=== PATIENT | female | born 1950 | race Caucasian/White ===

== ENCOUNTER → 2016-07-17 | Outpatient (CLI) | payer OTHER | LOC: BHFA 11:00 | PROVIDERS: ATTEND Internal Medicine Cardiovascular Disease | DX: R00.2 Palpitations (principal); R42 Dizziness and giddiness; R06.02 Shortness of breath ==

== ENCOUNTER → 2016-08-03 | Outpatient (CLI) | payer OTHER, MEDICAID | LOC: FIMAGING 10:01 | PROVIDERS: ATTEND Internal Medicine | DX: R07.9 Chest pain, unspecified (principal); R06.02 Shortness of breath ==

== ENCOUNTER → 2016-08-11 | Outpatient (CLI) | payer OTHER, MEDICAID | LOC: BHFA 10:00 | PROVIDERS: ATTEND Internal Medicine | DX: R07.9 Chest pain, unspecified (principal); R06.02 Shortness of breath ==

== ENCOUNTER → 2016-08-21 | Outpatient (CLI) | payer OTHER, MEDICAID | LOC: FIMAGING 15:01 | DX: Z12.31 Encounter for screening mammogram for malignant neoplasm of breast (principal) | CPT/HCPCS: G0202 ==

== ENCOUNTER 2017-01-22 08:20 | Observation (INO) | payer OTHER, MEDICAID ==
[2017-01-22] MEDS ORDERED: HYDROmorphONE/DILAUDID 1 MG/ML INJ IVP ONE ×2 (08:48→09:08)
--- NOTE | 2017-01-22 09:11 | EDPHY ---
H & P Stated Complaint: rt soulder pain Source: Patient Exam Limitations: No limitations - Personal History Current Tetanus/Diphtheria Vaccine: No Current Tetanus Diphtheria and Acellular Pertussis (TDAP): No - Medical/Surgical History Hx Asthma: Yes Hx Chronic Respiratory Disease: No Hx Diabetes: No Hx Cardiac Disease: No Hx Renal Disease: No Hx Cirrhosis: No Hx Alcoholism: No Hx HIV/AIDS: No Hx Splenectomy or Spleen Trauma: No Other PMH: anxiety - Social History Smoking Status: Never smoked Time Seen by Provider: 01/22/17 08:58 HPI/ROS: CHIEF COMPLAINT: right shoulder pain, right rib pain HISTORY OF PRESENT ILLNESS: 66-year-old female presents emergency department after slipping while going down stairs today. She missed a step and fell onto her right arm. Patient complains of right-sided chest pain and shoulder pain. Pain is worse with a deep breath and movement. She denies head strike, no loss of consciousness, remembers the entire accident, no neck pain. Patient denies numbness or tingling in her arm. REVIEW OF SYSTEMS: A comprehensive 10 point review of systems is otherwise negative aside from elements mentioned in the history of present illness. (Nica Rao) - Physical Exam Exam: General Appearance: Alert, grimacing, talking appropriately. Head: Atraumatic without scalp tenderness or obvious injury Eyes: Pupils equal, round, reactive to light, EOMI, no trauma, no injection. Ears: Clear bilaterally, no perforation, no hemotympanum Nose: Atraumatic, no rhinorrhea, no septal hematoma Neck: The cervical spine is non-tender. Cardiovascular: Heart is regular rate and rhythm without murmur. Good capillary refill all extremities. Chest: Anterior and right lateral chest wall tenderness to palpation, shallow respirations, lungs clear bilaterally Gastrointestinal: Soft, non-tender, non-distended. No rebound, guarding, or peritoneal signs. There is no evidence of external or internal trauma. Back:There is no thoracic or lumbar spine or paraspinal tenderness. Extremities: Right shoulder with decreased range of motion due to pain, swelling noted tenderness to AC joint and clavicle, no right elbow or wrist tenderness, 2+ radial pulses, sensation intact touch, normal deltoid sensation Neurological: Grossly intact Skin: No lacerations, diane, or abrasions. (Nica Rao) Constitutional: Initial Vital Signs Temperature (C) 36.7 C 01/22/17 08:26 Heart Rate 75 01/22/17 08:26 Respiratory Rate 18 01/22/17 08:26 Blood Pressure 134/89 H 01/22/17 08:26 O2 Sat (%) 98 01/22/17 08:26 O2 Delivery Mode Room Air Allergies/Adverse Reactions: erythromycin base Allergy (Verified 01/22/17 11:24) upest stomach Home Medications: Medication Instructions Recorded Cholecalciferol Vit D3 [Vitamin D3 100 units PO DAILY 01/22/17 (*)] Estradiol [Estrace Vaginal (*)] 1 triston VG HS 01/22/17 Herbals/Supplements -Info Only 1 ea PO DAILY 01/22/17 Ibuprofen [Motrin (*)] 800 mg PO DAILY PRN 01/22/17 LORazepam [Ativan (*)] 0.5 mg PO DAILY PRN 01/22/17 Multivitamins [Multivitamin (*)] 1 each PO DAILY 01/22/17 Zolpidem Tartrate [Ambien 5MG (*)] 5 mg PO HS PRN 01/22/17 Medical Decision Making - Diagnostics Imaging Results: Imaging Impressions Chest X-Ray 01/22/17 08:40 Impression: Possibly 3 acute right rib fractures. Humerus X-Ray 01/22/17 08:40 Impression: Distal right clavicle fracture. Displaced right posterior second rib fracture. 2. Right Humerus, 2 views History: Pain post fall Findings: No humeral fracture is identified. The shoulder and elbow joints appear normally aligned. The right second rib and distal clavicle fractures are again visualized. Impression: Negative right humerus. Results discussed with Dr. Rex Barragan. Clavicle X-Ray 01/22/17 08:55 Impression: Distal right clavicle fracture. Displaced right posterior second rib fracture. 2. Right Humerus, 2 views History: Pain post fall Findings: No humeral fracture is identified. The shoulder and elbow joints appear normally aligned. The right second rib and distal clavicle fractures are again visualized. Impression: Negative right humerus. Results discussed with Dr. Rxe Barragan. Chest CT 01/22/17 09:28 Impression: 1. Fracture distal right clavicle as well as fractures of the posterior right second rib and anterolateral right third fourth and sixth ribs. 2. Mild dilatation of the ascending aorta measuring 4 cm. This is nonspecific but can be seen with hypertension or aortic valvular disease. 3. No evidence of pulmonary parenchymal contusion or pneumothorax. Subsegmental atelectasis at the lung bases. 4. Incidental high flow hemangioma suspected in the right lobe liver as well as a small cyst. Findings discussed with Nica Rao NP at 10:43 hour, 01/22/2017. ED Course/Re-evaluation: IV established, patient is given 0.5 mg of Dilaudid for pain control. Right shoulder x-ray shows a distal clavicle fracture. Chest x-ray shows a 2nd rib fracture and possible 8th and 9th rib fracture. I-STAT ordered, CT chest with IV contrast obtained to evaluate for vascular injury. CT chest shows a 2nd, 3rd 4th and 6th rib fracture a with no pulmonary contusion , no pneumothorax or hemothorax, no vascular injury. I have spoken with trauma surgery with plan for admission and observation. Dr. Reina with ortho is aware of the patient. Pt's vital signs are stable. Pain is controlled with IV dilaudid. Room air O2 sats 93%. (Nica Rao) Differential Diagnosis: The differential diagnosis for the patient's trauma included but was not limited to intracranial injury, long bone and pelvic bone fractures, spinal injury, intra-abdominal injury, and intra-thoracic injury. (Nica Rao) Other Provider: Independent physician documentation CHIEF COMPLAINT: Right shoulder pain, deformity, chest wall pain, dyspnea HISTORY OF PRESENT ILLNESS: The patient presents to the ED with complaints of right shoulder pain, deformity and swelling noted to her distal clavicle, chest wall pain shortness of breath. The patient was at home where she reportedly earlier today. The patient did not strike her head or lose consciousness. She denies any complaints of headache or neck pain. The patient is not anticoagulated. She has moderate to severe pain with attempted movement of her right shoulder. The patient denies any acute numbness or weakness. She denies additional injury. REVIEW OF SYSTEMS: A comprehensive 10 point review of systems is otherwise negative aside from elements mentioned in the history of present illness. PHYSICAL EXAM: General Appearance: Alert, mild discomfort secondary to pain Head: Atraumatic Eyes: Pupils equal, round, reactive ENT, Mouth: No hemotympanum, no oral trauma Neck: Nontender, trachea midline Respiratory: Tenderness to palpation right distal clavicle, no subcutaneous emphysema Cardiovascular: Regular rate and rhythm Abdomen: Abdomen is soft and nontender, pelvis stable Skin: No lacerations, No abrasion Back: No midline T/L/S pain Extremities: Tenderness to palpation throughout the right proximal humerus, decreased range of motion secondary to pain Neurological: A&Ox3, normal motor function, normal sensory exam ED course: Patient was taken for chest x-rays of the right shoulder, clavicle and chest which demonstrated a displaced a distal clavicle fracture. The patient is also noted to have a least 1 rib fracture noted on her 2nd. A chest CT scan with contrast has been ordered to evaluate for any potential vascular injury. The CTA demonstrates no evidence of a vascular injury. It does demonstrate multiple rib fractures. The patient will require admission to the hospital for pain control this evening. Consultation was made with Dr. Laws from General surgery who will admit the patient. (Humberto Barragan) - Data Points Laboratory Results: 01/22/17 09:29 POC Hgb 15.0 gm/dL gm/dL (12.6-16.3) POC Hct 44 % % (38-47) POC Sodium 139 mEq/L mEq/L (134-144) POC Potassium 4.0 mEq/L mEq/L (3.3-5.0) POC Chloride 104 mEq/L mEq/L (97-110) POC BUN 14 mg/dL mg/dL (7-23) POC Creatinine 0.7 mg/dL mg/dL (0.6-1.0) POC Glucose 102 mg/dL H mg/dL (70-100) Medications Given: Diazepam (Valium Injection) 5 mg IVP Q6HRS PRN PRN Reason: Anxiety, Unable to Take PO Stop: 07/21/17 12:18 Last Admin: 01/22/17 13:07 Dose: 5 mg Discontinued Medications Hydrocodone Bitart/Acetaminophen (Crossnore 5/325) 1 tab PO EDNOW ONE Stop: 01/22/17 12:02 Last Admin: 01/22/17 12:10 Dose: 1 tab Hydromorphone HCl (Dilaudid) 0.5 mg IVP EDNOW ONE Stop: 01/22/17 08:49 Last Admin: 01/22/17 09:11 Dose: 0.5 mg Hydromorphone HCl (Dilaudid) 0.5 mg IVP EDNOW ONE Stop: 01/22/17 09:09 Last Admin: 01/22/17 09:31 Dose: 0.5 mg Ketorolac Tromethamine (Toradol) 15 mg IVP EDNOW ONE Stop: 01/22/17 12:02 Last Admin: 01/22/17 12:10 Dose: 15 mg Point of Care Test Results: 01/22/17 09:29 POC Sodium 139 POC Potassium 4.0 POC Chloride 104 POC BUN 14 POC Creatinine 0.7 POC Glucose 102 H Departure - Departure Disposition: [facility] Inpatient Acute Clinical Impression: Closed fracture of distal clavicle Qualifiers: Encounter type: initial encounter Fracture alignment: displaced Laterality: right Qualified Code(s): S42.031A - Displaced fracture of lateral end of right clavicle, initial encounter for closed fracture Ribs, multiple fractures Qualifiers: Encounter type: initial encounter Fracture type: closed Laterality: right Qualified Code(s): S22.41XA - Multiple fractures of ribs, right side, initial encounter for closed fracture Condition: Good
[2017-01-22] MEDS ORDERED: IOPAMIDOL (ISOVUE-300) 100 ML BTL ONE (09:45)
[2017-01-22] MEDS ORDERED: KETOROLAC 15 MG/1 ML SDV IVP ONE (12:01)
[2017-01-22] MEDS ORDERED: HYDROCODONE/APAP 5/325 TAB PO ONE (12:01)
--- NOTE | 2017-01-22 12:17 | PDGENHP ---
History and Physical - Chief Complaint Right shoulder pain - History of Present Illness 66-year-old female presents after sustaining a fall this morning. She states that she was getting out of bed and walking down the steps to make her morning coffee where she slipped about midway down the steps and sustained injuries to her right side. She denies having hit her head or any loss of consciousness and states that she fell with her right arm outstretched and caught herself with her right arm. Right after the fall, her was at her side she was complaining of excruciating right shoulder and side pain and was subsequently brought here for evaluation. She is protecting her airway, breathing shallow, and has adequate circulation. On my examination, the patient complains of right shoulder pain and is minimally moving her right arm. Other than the shoulder pain she has no complaints. The pain she describes is sharp, worse with movement, 8/10, nonradiating. Her last oral intake was some sips of water this morning that her brought her as she was coming to after her fall. History Information - Allergies/Home Medication List Allergies/Adverse Reactions: erythromycin base Allergy (Verified 01/22/17 11:24) upest stomach Home Medications: Cholecalciferol Vit D3 [Vitamin D3 (*)] 100 units PO DAILY 01/22/17 [Last Taken 01/21/17] Estradiol [Estrace Vaginal (*)] 1 triston VG HS 01/22/17 [Last Taken Unknown] Herbals/Supplements -Info Only 1 ea PO DAILY 01/22/17 [Last Taken Unknown] Ibuprofen [Motrin (*)] 800 mg PO DAILY PRN 01/22/17 [Last Taken Unknown] LORazepam [Ativan (*)] 0.5 mg PO DAILY PRN 01/22/17 [Last Taken Unknown] Multivitamins [Multivitamin (*)] 1 each PO DAILY 01/22/17 [Last Taken Unknown] Zolpidem Tartrate [Ambien 5MG (*)] 5 mg PO HS PRN 01/22/17 [Last Taken Unknown] I have personally reviewed and updated: family history, medical history, surgical history Past Medical History: Anxiety, insomnia, abnormal uterine bleeding - Surgical History Additional surgical history: Endometrial biopsy performed last week - Family History Positive for: non-pertinent - Social History Smoking Status: Never smoked Alcohol Use: Occasionally Drug Use: None Additional social history: 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, lives in [place] Review of Systems Review of Systems: ROS: 10pt was reviewed & negative except for what was stated in HPI & below Physical Exam Physical Exam: Temp Pulse Resp BP Pulse Ox 36.7 C 75 18 134/89 H 98 01/22/17 08:26 01/22/17 08:26 01/22/17 08:26 01/22/17 08:26 01/22/17 08:26 Constitutional: appears nourished, uncomfortable, other (Mild distress) Eyes: PERRL, anicteric sclera, EOMI Ears, Nose, Mouth, Throat: moist mucous membranes, hearing normal, ears appear normal, no oral mucosal ulcers Cardiovascular: regular rate and rhythym, no murmur, rub, or gallop, No edema Respiratory: no respiratory distress, no rales or rhonchi, clear to auscultation , other (Poor inspiratory effort tender to palpation on the right side) Gastrointestinal: normoactive bowel sounds, soft, non-tender abdomen, no palpable masses Skin: warm, normal color, no rashes or abrasions, no fluctuance, no induration, No mottled Musculoskeletal: full muscle strength, no muscle tenderness, normal joint ROM, no joint effusions Neurologic: AAOx3, sensation intact bilaterally, No weakness, No numbness Psychiatric: interacting appropriately, not encephalopathic, thought process linear, anxious Lymph, Heme, Immunologic: no cervical LAD, no supraclavicular LAD Lab Data & Imaging Review POC Hgb 15.0 gm/dL (12.6-16.3) 01/22/17 09:29 POC Hct 44 % (38-47) 01/22/17 09:29 POC Sodium 139 mEq/L (134-144) 01/22/17 09:29 POC Potassium 4.0 mEq/L (3.3-5.0) 01/22/17 09:29 POC Chloride 104 mEq/L (97-110) 01/22/17 09:29 POC BUN 14 mg/dL (7-23) 01/22/17 09:29 POC Creatinine 0.7 mg/dL (0.6-1.0) 01/22/17 09:29 POC Glucose 102 mg/dL (70-100) H 01/22/17 09:29 Visualized and Interpreted imaging results: Yes Interpretation: Images reviewed personally and interpreted by me include her chest x-ray, chest CT scan which showed a right distal clavicular fracture, right 2 through 4, 6th rib fractures, nondisplaced. No hemopneumothorax Assessment & Plan Assessment: Mechanical fall Closed fracture of distal clavicle (Acute) Right 2 through 4, 6th rib fracture Plan: Patient is currently stable in the emergency department. She will subsequently be admitted to the trauma service for pain control. Orthopedics consultation is pending, and will await their evaluation to see whether not this distal clavicular fracture requires operative intervention. In the meantime, we will maintain NPO status, and pursue adequate pain control with IV narcotics and anxiolytics. The patient has a significant amount of underlying anxiety which I think is exacerbating her pain and if properly dressed I feel that she will feel more comfort.
[2017-01-22] MEDS ORDERED: ONDANSETRON 4 MG/2 ML VIAL IVP PRN (12:19)
[2017-01-22] MEDS ORDERED: IBUPROFEN 800 MG TAB PO PRN (12:44)
[2017-01-22] MEDS: DIAZEPAM 10 MG/2 ML SYR IVP PRN ×2 (13:07→23:46)
[2017-01-22] MEDS: IBUPROFEN 600 MG TAB PO SCH ×2 (15:23→21:27)
[2017-01-22] MEDS ORDERED: D5W 1/2 NS W/ 20 KCl/L 1,000 ML IV SCH (17:30)
[2017-01-22] MEDS: HYDROmorphONE/DILAUDID 1 MG/ML INJ IVP PRN ×3 (18:43→23:49)
[2017-01-23] MEDS: HYDROmorphONE/DILAUDID 1 MG/ML INJ IVP PRN ×2 (03:25→05:30)
[2017-01-23] MEDS: IBUPROFEN 600 MG TAB PO SCH (05:30)
--- NOTE | 2017-01-23 10:11 | TRAUMAPN ---
Assessment/Plan: This is a 66-year-old woman who presents with all retirement down a flight of stairs with ribs 2 through 4 and 6 fractured on the right as well as right distal clavicle fracture. She has been seen in consultation by Dr. Reina however no consultation note is available to review at this time. By report and the fact that she is eating we believe non operative care will be given for the clavicular fracture. On tertiary survey the patient has no specific complaints except for pain in her clavicle and ribs. She does have an incentive spirometer which she is using adequately she feels mildly anxious which is baseline for her. Regular rate and rhythm Clear to auscultation bilaterally Abdomen soft nontender nondistended No issues with right upper extremity, bilateral lower extremities Right upper extremity limited range of motion around the shoulder as expected no ecchymoses good crew team member strength. Neurologic nonfocal Extraocular motions intact Pupils 3 mm reactive Trachea midline neck is supple No back tenderness 2+ over 2+ radial pulses bilaterally DP pulses bilaterally femoral pulses bilaterally Impression doing very well at this point with rib fractures and clavicular fracture status post mechanical fall downstairs Advance diet and use oral medications for pain oxycodone and Motrin have been given. The patient also does have some benzodiazepine for muscle spasm and anxiety We will reassess her situation later on today to decide on discharge/ disposition. All questions were addressed. No further imaging required at this point Objective: Vital Signs Temp Pulse Resp BP Pulse Ox 36.4 C 57 L 16 110/76 90 L 01/23/17 07:57 01/23/17 07:57 01/23/17 07:57 01/23/17 07:57 01/23/17 07:57 01/22/17 01/23/17 01/24/17 05:59 05:59 05:59 Intake Total 784 Output Total 700 Balance 84
[2017-01-23] MEDS: IBUPROFEN 800 MG TAB PO SCH ×2 (10:55→15:40)
[2017-01-23] MEDS: oxyCODONE IR 5 MG TAB PO PRN ×2 (10:56→15:40)
[2017-01-23 11:36] VITALS: PULSE 70
[2017-01-23] MEDS: DIAZEPAM 10 MG/2 ML SYR IVP PRN (13:21)
--- NOTE | 2017-01-23 14:41 | PDCONSULT ---
[employer] Architect Note: Orthopaedic Consult Note DOS: 01/22/2017 CC: Right clavicle fracture HPI: Called by ED (Juancarlos Rao) to evaluate patient with Right distal clavicle fracture on floor after admitted. Patient had fallen on stairs directly onto Right shoulder suffering rib fractures and the clavicle fracture. She denied initial head hit. We called her after reviewing films to discuss next steps. We discussed both operative and nonoperative interventions. Nonoperative treatment in a sling has a ~30% chance of nonunion, but would avoid risks of surgery. Operative treatment could improve return to work times and optimize long-term arm performance, but that utility depends on her activity level. The patient discussed with her and wished to proceed with nonop mgmt. She had some pain with chewing, but that has resolved. No headaches ROS: - recent endometrial biopsy, potential future hysterectomy. MSK per HPI. Other systems reviewed and at baseline PMHx: Anxiety Meds: Lorazepam PRM, Zolpidem SurgHx: Endometirla biopsy. All: erythromycin causes GI upset SocHx: Lives with . Nonsmoker. 3drnks/week. Retired property supervisor PE: AxOx3. regular breathing. hearing intact RUE: ttp at distal clavicle. NO skin tenting. no erythema. NO ecchymosis. mild edema SILT A/R/U/M. 2+ radial pulse. 4+/5 EPL/APB/FDS/FDP2,5/IO. No pain with elbow ROM. Imaging: radiographs and CT reviewed. Right distal clavicle fracture. Trapezoid appears intact with located distal fragment. a couple comminution pieces bridging superiorly to displaced end of shaft with likely disrupted conoid ligament. Impression: 66y RHD F w/R distal clavicle fracture and multiple rib fx. Plan: Patient would like to attempt nonop management of the Right clavicle, after discussion of risks/benefits/alternatives of surgical and nonsurgical management. She is aware that nonunion risk is higher with nonop treatment, but that surgery could be avoided altogether down that route. She has mild amibitions for RUE physical that are not too aggressive and could have a good functional outcome with nonop healing. We discussed operative intervention down the road if she develops a painful nonunion. She is happy with this plan - NWB RUE - Sling RUE - remove TID for elbow ROM to avoid stiffness. No shoulder ROM exercises at this time - Followup in clinic ([facility]) in 3 weeks for repeat films of the Right clavicle. Will likely start gentle ROM exercises at that time
--- NOTE | 2017-01-23 14:56 | SOAPPROG ---
SOAP Progress Note Assessment/Plan: Assessment: 66y RHD F with Right clavicle fracture and rib fractures Plan: - NWB RUE - SLing RUE. Elbow ROM 3x per day. NO shoulder ROM exercises - Followup in clinic in 3 weeks for repeat films Subjective: Pt got sling and is more comfortable. Had some anxiety after therapists worked with her, but calming down Objective: Vital Signs Temp Pulse Resp BP Pulse Ox 36.9 C 70 20 141/91 H 90 L 01/23/17 11:34 01/23/17 11:34 01/23/17 11:34 01/23/17 11:34 01/23/17 11:34 01/22/17 01/23/17 01/24/17 05:59 05:59 05:59 Intake Total 784 Output Total 700 Balance 84 Breathing regularly. TTP R clavicle. SILT A/R/U/M. moving all fingers well. 2+ radial pulse. ICD10 Worksheet Patient Problems: Problems Problem Status Onset Closed fracture of distal clavicle Acute Ribs, multiple fractures Acute
[2017-01-23] MEDS ORDERED: MAGNESIUM HYDROXIDE 30 ML UDCUP PO PRN (15:00)
[2017-01-23] MEDS ORDERED: POLYETHYLENE GLYCOL 3350 17 GM PKT PO PRN (15:00)
[2017-01-23] MEDS ORDERED: LACTULOSE 20 GM/30 ML UDCUP PO PRN (15:00)
[2017-01-23] MEDS ORDERED: BISACODYL 10 MG SUPP PR PRN (15:00)
[2017-01-23 15:15] VITALS: BP 134/77; RESP 16; TEMP 97.9; O2SAT 91
--- NOTE | 2017-01-23 16:06 | PDDCSUM ---
Discharge Summary Discharge Summary: Admission diagnosis: Fall with clavicle fracture right distal and rib fractures right. Admission date 01/22/2017 discharge date 01/23/2017 No complications of hospital stay Consultants: Dr. Reina orthopedic surgery for distal clavicle fracture non operative therapy recommended with follow-up in 1 week if patient continues to have pain 3 weeks if pain subsides. Sling for comfort. Physical therapy and occupational therapy and speech/swallow services No home care required for patient suggest and given an outlined in discharge plan Regular rate and rhythm clear to auscultation Abdomen soft nontender Distal neurovascularly intact Right hand good muscle strength deformity in tenderness right shoulder girdle Planned discharged home after discussion with the patient Valium and oxycodone will be given as part of her home medications along with ibuprofen 800 mg three times daily patient has a follow-up wit Dr. Reina as indicated
[2017-01-23] MEDS ORDERED: SENNOSIDES/DOCUSATE SODIUM TAB PO SCH (21:00)
[2017-01-23] MEDS ORDERED: ESTRADIOL 42.5 GM CRTUBE VG SCH (21:00)
[2017-01-24] MEDS ORDERED: CHOLECALCIFEROL VIT D3 1,000 UNITS TAB PO SCH (09:00)
== END 2017-01-23 17:45 | disposition home or self-care (01) ==
LOC: F3E 12:26
PROVIDERS: ADMIT Surgery; ATTEND Surgery
DX: S42.031A Displaced fracture of lateral end of right clavicle, initial encounter for closed fracture (principal); S22.41XA Multiple fractures of ribs, right side, initial encounter for closed fracture; W10.9XXA Fall (on) (from) unspecified stairs and steps, initial encounter; Y92.009 Unspecified place in unspecified non-institutional (private) residence as the place of occurrence of the external cause
CPT/HCPCS: 71010; 71260; 73000; 73060; 92523; 96374; 96375; 97161; 97165; 97530; G0378; G8978; G8979; G8980; G8987; G8988; G9168; G9169; G9170; J1170; J1885; Q9967; 82947-QW

== ENCOUNTER → 2017-08-25 | Outpatient (CLI) | payer OTHER, MEDICAID | LOC: FIMAGING 15:05 | PROVIDERS: ATTEND Physician Assistant | DX: Z12.31 Encounter for screening mammogram for malignant neoplasm of breast (principal) ==

== ENCOUNTER → 2017-09-17 | Outpatient (CLI) | payer OTHER, MEDICAID | LOC: FIMAGING 11:25 | PROVIDERS: ATTEND Family Medicine | DX: Z13.820 Encounter for screening for osteoporosis (principal); M85.89 Other specified disorders of bone density and structure, multiple sites; Z78.0 Asymptomatic menopausal state; Z87.81 Personal history of (healed) traumatic fracture ==

== ENCOUNTER → 2018-08-30 | Outpatient (CLI) | payer OTHER, MEDICAID | LOC: FIMAGING 14:51 | PROVIDERS: ATTEND Physician Assistant | DX: Z12.31 Encounter for screening mammogram for malignant neoplasm of breast (principal) ==

== ENCOUNTER → 2018-11-07 | Outpatient (CLI) | payer OTHER, MEDICAID | LOC: FIMAGING 15:10 ==